=== PATIENT | female | born 1990 | race Two or more races ===

== ENCOUNTER 2024-09-11 20:55 | Emergency (ER) | payer OTHER ==
[~2024-09-11] VITALS: Ht 121.9 cm; Wt 64.4 kg
[2024-09-11] MEDS ORDERED: PRENA1 CHEW TA1.4 MG PO (21:40)
[2024-09-11] MEDS ORDERED: MEPERIDINE HCL 25 MG/ML AMPUL IM ONE (22:45)
[2024-09-11] MEDS ORDERED: 0.9 % SODIUM CHLORIDE 500 ML IV SCH (22:45)
[2024-09-11 23:12] LABS: HEMATOCRIT 39.9 % (36.0-45.00); HEMOGLOBIN 13.6 g/dL (12.0-15.00); MEAN CELL VOLUME 82.9 fL (80.00-100.00); MEAN CORPUSCULAR HEMOGLOBIN 28.3 pg (27.00-32.0); MEAN CORPUSCULAR HGB CONC 34.1 g/dl (32.0-36.0); PLATELET COUNT 242 K/uL (150-450); RED BLOOD COUNT 4.81 M/uL (4.00-6.00); RED CELL DISTRIBUTION WIDTH 13.3 % (11.5-14.5)
[2024-09-12 00:02] LABS: CALCIUM 9.2 mg/dL (8.5-10.1); GFR 150.79; POTASSIUM 3.79 mEq/L (3.5-5.1)
[2024-09-12 00:06] LABS: URINE APPEARANCE Clear; URINE BILIRRUBIN Negative (NEGATIVE); URINE BLOOD Negative; URINE COLOR Yellow; URINE GLUCOSE Negative (NEGATIVE); URINE KETONE Trace (NEGATIVE); URINE LEUKOCYTE Negative; URINE NITRATE Negative; URINE PROTEIN 30 (NEGATIVE)
[2024-09-12 00:06] LABS: CREATININE SERUM 0.47 mg/dL (0.55-1.02)
[2024-09-12 00:10] LABS: URINE BACTERIA 2022.2 uL (0.0-1933); URINE EPITHELIAL CELLS 50.9 uL (0.0-38.8); URINE RBC 9.1 uL (0.0-20.8); URINE WBC 8.9 uL (0.0-23.2)
[2024-09-12 00:26] LABS: URINE CAST 0.15 uL (0.0-1.40)
[2024-09-12] MEDS ORDERED: MEPERIDINE HCL/PF 50 MG/ML VIAL IV ONE (01:00)
== END 2024-09-12 08:34 | disposition home or self-care (01) ==
LOC: ER 20:56
PROVIDERS: Emergency Medicine
DX: O99.891 Other specified diseases and conditions complicating pregnancy (principal); Z3A.11 11 weeks gestation of pregnancy; Z88.2 Allergy status to sulfonamides

== ENCOUNTER 2024-09-24 10:59 | Outpatient (CLI) | payer OTHER ==
[~2024-09-24 10:59] MED LIST: PRENA1 CHEW TA1.4 MG PO
== END 2024-09-24 11:00 | disposition home or self-care (01) ==
LOC: PRENATAL 10:59
PROVIDERS: ATTEND Obstetrics & Gynecology Maternal & Fetal Medicine
DX: O36.80X0 Pregnancy with inconclusive fetal viability, not applicable or unspecified (principal); Z36.82 Encounter for antenatal screening for nuchal translucency; O34.219 Maternal care for unspecified type scar from previous cesarean delivery; Z3A.13 13 weeks gestation of pregnancy

== ENCOUNTER 2024-11-10 12:35 | Outpatient (CLI) | payer OTHER | END 2024-11-10 12:36 | disposition home or self-care (01) | LOC: PRENATAL 12:35 | PROVIDERS: ATTEND Obstetrics & Gynecology Maternal & Fetal Medicine | DX: O44.00 Complete placenta previa NOS or without hemorrhage, unspecified trimester (principal); O34.219 Maternal care for unspecified type scar from previous cesarean delivery; Z3A.20 20 weeks gestation of pregnancy ==

== ENCOUNTER 2025-02-08 11:11 | Outpatient (CLI) | payer OTHER | END 2025-02-08 11:12 | disposition home or self-care (01) | LOC: PRENATAL 11:11 | PROVIDERS: ATTEND Obstetrics & Gynecology Maternal & Fetal Medicine | DX: O26.849 Uterine size-date discrepancy, unspecified trimester (principal); O36.8199 Decreased fetal movements, unspecified trimester, other fetus; O34.219 Maternal care for unspecified type scar from previous cesarean delivery; Z3A.33 33 weeks gestation of pregnancy ==

== ENCOUNTER 2025-03-24 08:45 | Inpatient (IN) | payer OTHER ==
[~2025-03-24] VITALS: Ht 149.9 cm; Wt 77.1 kg
[2025-03-24 10:21] LABS: PH,URINE 5.5 (5.0-8.0); URINE APPEARANCE Clear; URINE BILIRRUBIN Negative (NEGATIVE); URINE BLOOD Negative; URINE COLOR Yellow; URINE GLUCOSE Negative (NEGATIVE); URINE KETONE Negative (NEGATIVE); URINE LEUKOCYTE Negative; URINE NITRATE Negative; URINE PROTEIN Trace (NEGATIVE); URINE UROBILINOGEN 0.2 E.U./dl
[2025-03-24 10:25] LABS: URINE BACTERIA 506.6 uL (0.0-1933); URINE EPITHELIAL CELLS 67.7 uL (0.0-38.8); URINE RBC 3.9 uL (0.0-20.8)
[2025-03-24 10:33] LABS: HEMATOCRIT 37.9 % (36.0-45.00); HEMOGLOBIN 12.5 g/dL (12.0-15.00); MEAN CELL VOLUME 84.4 fL (80.00-100.00); MEAN CORPUSCULAR HEMOGLOBIN 27.9 pg (27.00-32.0); PLATELET COUNT 165 K/uL (150-450); RED BLOOD COUNT 4.49 M/uL (4.00-6.00); RED CELL DISTRIBUTION WIDTH 14.3 % (11.5-14.5)
[2025-03-24 10:44] LABS: INR < 0.93; PARTIAL THROMBOPLASTIN TIME 27.7 SECONDS (22.0-34.0); PROTHROMBIN TIME 9.4 SECONDS (9.0-11.5)
[2025-03-24 10:51] LABS: URINE CAST 0.29 uL (0.0-1.40)
[2025-03-24 10:53] LABS: ALBUMIN 2.9 gm/dL (3.4-5.0); BILIRUBIN TOTAL 0.2 mg/dL (0.3-1.2); CALCIUM 8.8 mg/dL (8.5-10.1); CREATININE SERUM 0.56 mg/dL (0.55-1.02); GFR 122.49; GLOBULINA 3.7 G/DL (2.4-3.5); POTASSIUM 4.48 mEq/L (3.5-5.1); TOTAL PROTEIN 6.6 gm/dL (6.4-8.2)
[2025-03-24 11:34] LABS: RH POSITIVE
[2025-03-29 12:03] VITALS: BP 122/80
[2025-03-29] MEDS ORDERED: CEFAZOLIN SODIUM 1,000 MG VIAL ONE (13:27)
[2025-03-29] MEDS ORDERED: OXYTOCIN 10 UNITS/ML VIAL ONE ×2 (17:25→21:49)
[2025-03-29] MEDS ORDERED: ERYTHROMYCIN BASE OPHT 1GM EACH TUBE OP ONE ×2 (17:25→17:45)
[2025-03-29] MEDS ORDERED: OXYTOCIN 10 UNITS/ML VIAL IV ONE (17:45)
[2025-03-29] MEDS ORDERED: CEFAZOLIN SODIUM 1,000 MG VIAL IV ONE (17:45)
[2025-03-29] MEDS ORDERED: ONDANSETRON HCL 2 MG/ML VIAL IV PRN (18:45)
[2025-03-29] MEDS ORDERED: MORPHINE SULFATE 4 MG/ML CARTRIDGE IV PRN (18:45)
[2025-03-29] MEDS ORDERED: MORPHINE SULFATE 4 MG/ML VIAL IV ONE ×2 (20:25→21:40)
[2025-03-29] MEDS ORDERED: SIMETHICONE 125 MG CAPSULE PO SCH (21:00)
[2025-03-29] MEDS ORDERED: METOCLOPRAMIDE HCL 5 MG/ML VIAL IV SCH (22:00)
[2025-03-29] MEDS ORDERED: RINGERS SOLUTION,LACTATED 1,000 ML IV SCH (22:00)
[2025-03-29] MEDS ORDERED: OXYTOCIN 1,000 ML IV SCH (22:00)
[2025-03-29 22:49] VITALS: BP 139/82
[2025-03-30] MEDS ORDERED: KETOROLAC TROMETHAMINE 30 MG VIAL IV SCH
[2025-03-30 05:00] VITALS: BP 122/82
[2025-03-30 06:45] LABS: HEMATOCRIT 30.5 % (36.0-45.00); HEMOGLOBIN 10.4 g/dL (12.0-15.00); MEAN CELL VOLUME 83.8 fL (80.00-100.00); MEAN CORPUSCULAR HEMOGLOBIN 28.7 pg (27.00-32.0); MEAN CORPUSCULAR HGB CONC 34.2 g/dl (32.0-36.0); RED BLOOD COUNT 3.64 M/uL (4.00-6.00)
[2025-03-30 06:47] LABS: PLATELET COUNT 122 K/uL (150-450)
[2025-03-30 07:04] LABS: URINE APPEARANCE Clear; URINE BILIRRUBIN Negative (NEGATIVE); URINE BLOOD Large; URINE COLOR Yellow; URINE GLUCOSE Negative (NEGATIVE); URINE KETONE Negative (NEGATIVE); URINE LEUKOCYTE Negative; URINE NITRATE Negative; URINE PROTEIN Negative (NEGATIVE); URINE UROBILINOGEN 0.2 E.U./dl
[2025-03-30 07:06] LABS: URINE BACTERIA 14.6 uL (0.0-1933); URINE EPITHELIAL CELLS 2.8 uL (0.0-38.8); URINE RBC 127.9 uL (0.0-20.8); URINE WBC 10.4 uL (0.0-23.2)
[2025-03-30 07:15] LABS: URINE CAST 0.14 uL (0.0-1.40)
[2025-03-30 07:24] LABS: ALBUMIN 2.1 gm/dL (3.4-5.0); BILIRUBIN TOTAL 0.32 mg/dL (0.3-1.2); CALCIUM 7.9 mg/dL (8.5-10.1); CREATININE SERUM 0.44 mg/dL (0.55-1.02); GFR 161.79; GLOBULINA 2.7 G/DL (2.4-3.5); POTASSIUM 4.4 mEq/L (3.5-5.1); TOTAL PROTEIN 4.8 gm/dL (6.4-8.2)
[2025-03-30] MEDS ORDERED: IBUprofen 800 MG TABLET PO SCH (09:00)
[2025-03-30] MEDS ORDERED: DOCUSATE SODIUM 100MG CAP PO SCH (09:00)
[2025-03-30] MEDS ORDERED: ACETAMINOPHEN 500 MG GEL..CAP PO SCH (12:00)
[2025-03-30 12:31] VITALS: BP 119/78
[2025-03-30 16:00] VITALS: BP 127/83
[2025-03-31 00:43] VITALS: BP 120/70
[2025-03-31 05:00] VITALS: BP 120/80
[2025-03-31 08:00] VITALS: BP 135/80
[2025-03-31 16:00] VITALS: BP 133/80
[2025-03-31] MEDS ORDERED: SURFAK240 M1 PO (18:16)
[2025-03-31] MEDS ORDERED: IBU800 MG PO (18:16)
== END 2025-03-31 20:07 | disposition home or self-care (01) | DRG 788 ==
LOC: OB/GYN 03-29 08:45 → O/R 03-29 11:09 → OB/GYN 03-29 12:15
PROVIDERS: Specialist; ADMIT Obstetrics & Gynecology; ATTEND Obstetrics & Gynecology
PROC: 4A1HXCZ Monitoring of Products of Conception, Cardiac Rate, External Approach (ICD-10-PCS; 2025-03-29)
PROC: 10D00Z1 Extraction of Products of Conception, Low, Open Approach (ICD-10-PCS; principal; 2025-03-29 12:15)
DX: O34.211 Maternal care for low transverse scar from previous cesarean delivery (principal); O69.81X0 Labor and delivery complicated by cord around neck, without compression, not applicable or unspecified; Z3A.39 39 weeks gestation of pregnancy; Z37.0 Single live birth